=== PATIENT | female | born 1990 | race Caucasian/White ===

== ENCOUNTER 2018-05-23 14:16 | Emergency (ER) | payer OTHER ==
[2018-05-23] MEDS: ONDANSETRON ODT 4 MG TAB.RAPDIS. PO (14:37)
[2018-05-23] MEDS: oxyCODONE/APAP 5/325 1 TAB TABLET PO (14:38)
== END 2018-05-23 15:10 | disposition home or self-care (01) ==
LOC: ER 14:16
DX: S62.92XA Unspecified fracture of left hand, initial encounter for closed fracture (principal); E03.9 Hypothyroidism, unspecified; W01.0XXA Fall on same level from slipping, tripping and stumbling without subsequent striking against object, initial encounter; Y93.89 Activity, other specified; Y92.000 Kitchen of unspecified non-institutional (private) residence as the place of occurrence of the external cause; Y99.8 Other external cause status
CPT/HCPCS: 29125; 73130; 99284; Q0162